=== PATIENT | female | born 1985 | race African-American/Black ===

== ENCOUNTER 2016-05-08 13:37 | Emergency (ER) | payer OTHER ==
[2016-05-08] MEDS ORDERED: ONDANSETRON ODT 4 MG TAB PO STA (14:11)
[2016-05-08] MEDS ORDERED: ACETAMINOPHEN TAB 500 MG TAB PO STA (14:11)
--- NOTE | 2016-05-08 14:22 | ED ---
Abdominal Pain HPI - General Chief Complaint: Abdominal Pain Stated Complaint: Vomiting Time Seen by Provider: 05/08/16 14:05 Source: patient, RN notes reviewed Mode of arrival: ambulatory Limitations: no limitations - History of Present Illness Initial Comments: 31-year-old female presents emergency Department with chief complaint of body aches, fever and upset stomach. Patient states that she believes that she ate bad food yesterday in which her son also did. She states her son had been vomiting this morning. She denies any vomiting states she's nauseated. Patient states that she has no specific abdominal pain. Patient states that she 's had a minimal cough but states that she has a headache and diffuse body aches. She has not taken any Tylenol or Motrin. Patient states that she does not know if she had a flu shot. Patient denies any chest pain or shortness of breath. Patient denies any neck stiffness - Related Data Previous Rx's Medication Instructions Recorded Ondansetron Odt [Zofran Odt] 4 mg PO Q8HR PRN #10 tab 05/08/16 Allergies Allergy/AdvReac Type Severity Reaction Status Date / Time Penicillins Allergy Severe Anaphylaxis Verified 05/08/16 14:05 Review of Systems ROS Statement: Those systems with pertinent positive or pertinent negative responses have been documented in the HPI. ROS Other: All systems not noted in ROS Statement are negative. Past Medical History Past Medical History: No Reported History Additional Past Medical History / Comment(s): increased blood pressure History of Any Multi-Drug Resistant Organisms: None Reported Past Surgical History: Orthopedic Surgery Additional Past Surgical History / Comment(s): left knee Past Anesthesia/Blood Transfusion Reactions: No Reported Reaction Past Psychological History: No Psychological Hx Reported Smoking Status: Never smoker Past Alcohol Use History: None Reported Past Drug Use History: None Reported - Past Family History Father History Unknown: Yes General Exam Limitations: no limitations General appearance: alert, in no apparent distress Head exam: Present: atraumatic, normocephalic, normal inspection Eye exam: Present: normal appearance, PERRL, EOMI. Absent: scleral icterus, conjunctival injection, periorbital swelling ENT exam: Present: normal exam, normal oropharynx, mucous membranes moist, TM's normal bilaterally, normal external ear exam Neck exam: Present: normal inspection, full ROM. Absent: tenderness, meningismus, lymphadenopathy Respiratory exam: Present: normal lung sounds bilaterally. Absent: respiratory distress, wheezes, rales, rhonchi, stridor Cardiovascular Exam: Present: normal rhythm, tachycardia, normal heart sounds. Absent: systolic murmur, diastolic murmur, rubs, gallop, clicks GI/Abdominal exam: Present: soft, normal bowel sounds. Absent: distended, tenderness, guarding, rebound, rigid Back exam: Absent: CVA tenderness (R), CVA tenderness (L) Skin exam: Present: warm, dry, intact, normal color. Absent: rash Course Vital Signs 05/08/16 13:54 Temperature 100.9 F H Pulse Rate 116 H Respiratory 18 Rate Blood Pressure 128/75 O2 Sat by Pulse 99 Oximetry Medical Decision Making - Medical Decision Making 31-year-old female presented emergency department with chief complaint of fever or bodyaches discharged on is not feeling well. She states she does feel better for Zofran. Patient will be discharged with Zofran reported negative. Return parameters were discussed. - Lab Data Lab Results 05/08/16 Range/Units 14:43 Influenza Type A RNA Not Detected (Not Detectd) Influenza Type B (PCR) Not Detected (Not Detectd) Disposition Clinical Impression: Viral infection Disposition: HOME SELF-CARE Condition: Stable Instructions: Viral Syndrome (ED) Additional Instructions: Please return to the Emergency Department if symptoms worsen or any other concerns. Prescriptions: Ondansetron Odt [Zofran Odt] 4 mg PO Q8HR PRN #10 tab PRN Reason: Nausea Time of Disposition: 15:32
[2016-05-08] MEDS ORDERED: IBUPROFEN 600 MG TAB PO STA (15:31)
[2016-05-08 15:49] VITALS: BP 153/77; PULSE 104; RESP 20; TEMP 100.3
== END 2016-05-08 15:49 | disposition home or self-care (01) ==
LOC: EC 13:37
DX: B34.9 Viral infection, unspecified (principal); Z88.0 Allergy status to penicillin
CPT/HCPCS: 87502; 99284

== ENCOUNTER 2016-07-30 00:02 | Emergency (ER) | payer OTHER ==
[2016-07-30 00:09] VITALS: BP 129/69; PULSE 88; RESP 20; TEMP 97.8
[2016-07-30] MEDS ORDERED: AZITHROMYCIN 250 MG TAB PO STA (00:54)
--- NOTE | 2016-07-30 00:55 | ED ---
ENT HPI - General Chief complaint: ENT Stated complaint: sore throat Time Seen by Provider: 07/30/16 00:51 Source: patient, RN notes reviewed Mode of arrival: ambulatory Limitations: no limitations - History of Present Illness Initial comments: 31-year-old female presents emergency Department chief complaint left ear pain, says her throat. Patient states it started last 48 hours. Progressively getting worse. Denies any fatigue. Denies any abdominal pain no history of mono. Patient states her swallow every time though she is having no difficulty swallowing. Denies any headache or dizziness. Denies any neck stiffness. Patient states she has not taking any recent Tylenol Motrin. - Related Data Previous Rx's Medication Instructions Recorded Azithromycin [Zithromax Z-pack] 0 mg PO DIRECTED #1 pack 07/30/16 Allergies Allergy/AdvReac Type Severity Reaction Status Date / Time Penicillins Allergy Severe Anaphylaxis Verified 07/30/16 00:09 Review of Systems ROS Statement: Those systems with pertinent positive or pertinent negative responses have been documented in the HPI. ROS Other: All systems not noted in ROS Statement are negative. Past Medical History Past Medical History: No Reported History Additional Past Medical History / Comment(s): increased blood pressure History of Any Multi-Drug Resistant Organisms: None Reported Past Surgical History: Orthopedic Surgery Additional Past Surgical History / Comment(s): left knee Past Anesthesia/Blood Transfusion Reactions: No Reported Reaction Past Psychological History: No Psychological Hx Reported Smoking Status: Never smoker Past Alcohol Use History: None Reported Past Drug Use History: None Reported - Past Family History Father History Unknown: Yes General Exam Limitations: no limitations General appearance: alert, in no apparent distress, obese Head exam: Present: atraumatic, normocephalic, normal inspection Eye exam: Present: normal appearance, PERRL, EOMI. Absent: scleral icterus, conjunctival injection, periorbital swelling ENT exam: Present: mucous membranes moist, normal external ear exam. Absent: normal oropharynx (Erythematous), TM's normal bilaterally (Left TM erythematous) Neck exam: Present: normal inspection, full ROM. Absent: tenderness, meningismus, lymphadenopathy Respiratory exam: Present: normal lung sounds bilaterally. Absent: respiratory distress, wheezes, rales, rhonchi, stridor Cardiovascular Exam: Present: regular rate, normal rhythm, normal heart sounds. Absent: systolic murmur, diastolic murmur, rubs, gallop, clicks Course Vital Signs 07/30/16 00:07 Temperature 97.8 F Pulse Rate 88 Respiratory 20 Rate Blood Pressure 129/69 O2 Sat by Pulse 99 Oximetry Disposition Clinical Impression: Otitis media, Acute pharyngitis Disposition: HOME SELF-CARE Condition: Stable Instructions: Earache (ED) Additional Instructions: Please return to the Emergency Department if symptoms worsen or any other concerns. Prescriptions: Azithromycin [Zithromax Z-pack] 0 mg PO DIRECTED #1 pack Referrals: None,Stated [Primary Care Provider] - 1-2 days Time of Disposition: 00:55
== END 2016-07-30 01:11 | disposition home or self-care (01) ==
LOC: EC 00:02
DX: J02.9 Acute pharyngitis, unspecified (principal); H66.92 Otitis media, unspecified, left ear; Z88.0 Allergy status to penicillin
CPT/HCPCS: 99282

== ENCOUNTER 2016-08-09 15:53 | Emergency (ER) | payer OTHER ==
[2016-08-09 16:00] VITALS: BP 141/82; PULSE 94; RESP 18; TEMP 98.5
--- NOTE | 2016-08-09 16:44 | ED ---
General Adult HPI - General Chief complaint: Skin/Abscess/Foreign Body Stated complaint: abscess Source: patient, family, RN notes reviewed Mode of arrival: ambulatory Limitations: no limitations - History of Present Illness Initial comments: Chief complaint and history of present illness a 31-year-old female here with family. The patient was recently treated for an ear infection with a Z-Alexander. The patient reports afterward she developed very large recurrent thyroglossal duct cyst. She reports she's had it since she was very young. Its been drained in the doctor's office on several occasions. She reports is significantly smaller now than it was earlier. She also reports that in the past she's has made a drain by putting a pin in it. Strongly encouraged not to do that. Patient denies fever or difficulty swallowing. - Related Data Previous Rx's Medication Instructions Recorded Cephalexin [Keflex] 500 mg PO Q6HR #40 cap 08/09/16 Allergies Allergy/AdvReac Type Severity Reaction Status Date / Time Penicillins Allergy Severe Anaphylaxis Verified 08/09/16 16:10 Review of Systems ROS Statement: Those systems with pertinent positive or pertinent negative responses have been documented in the HPI. Review of systems no other complaints today other than what she considers an ugly lump on the anterior neck. . Past medical problems thyroglossal duct cyst. She's also had orthopedic surgery on her knee. Family history not respiratory she has ALLERGIES to penicillins. ROS Other: All systems not noted in ROS Statement are negative. Past Medical History Past Medical History: No Reported History Additional Past Medical History / Comment(s): increased blood pressure History of Any Multi-Drug Resistant Organisms: None Reported Past Surgical History: Orthopedic Surgery Additional Past Surgical History / Comment(s): left knee Past Anesthesia/Blood Transfusion Reactions: No Reported Reaction Past Psychological History: No Psychological Hx Reported Smoking Status: Never smoker Past Alcohol Use History: None Reported Past Drug Use History: None Reported - Past Family History Father History Unknown: Yes General Exam - General Exam Comments Initial Comments: General: The patient is awake and alert, in no distress, and does not appear acutely ill. Here because of a marble sized thyroglossal duct cyst. Below the marble sized cyst is a larger harder area. About the size of a golf ball. Vital signs shows temperature 98.5 pulse 94 respiratory rate 18 pulse ox 90% room air blood pressure 141/82 Ears, nose, mouth and throat: There are moist mucous membranes and no oral lesions. No lymphadenopathy. The patient does have a thyroglossal duct cyst noted midline. Patient reports significantly smaller today than it had been in the past week. She states in the past when it was opened or drained spontaneously was a clear fluid and sometimes with pus. The patient is not having any difficulty breathing. No fever. No cough. Neck: As discussed above. Cardiovascular: No chest pain or palpitations Respiratory: No difficulty breathing. Limitations: no limitations Course Vital Signs 08/09/16 15:58 Temperature 98.5 F Pulse Rate 94 Respiratory 18 Rate Blood Pressure 141/82 O2 Sat by Pulse 98 Oximetry Medical Decision Making - Medical Decision Making Vital decision making. The patient will be referred onto on-call ENT Dr. Goldsmith. She was told to use warm compresses over the area and if it drained spontaneously apply a bandage topical antibiotic. She's otherwise been prescribed Keflex to be taken. Advised not to poke the skin to make it drain which she states she has done in the past. She reports spontaneously decreased in size without draining outwardly. Patient states she was reluctant to have the cyst removed or surgery on it in the past because she was told it might affect her vocal cords. I did discuss with her the possibility of thyroglossal duct cyst becoming malignant. Very important for her to follow up with ENT to make sure this has not happened. Disposition Clinical Impression: Persistent thyroglossal duct cyst Disposition: HOME SELF-CARE Condition: Fair Instructions: Abscess (ED) Additional Instructions: Take Keflex as directed until completed area and follow-up with on-call ENT for further evaluation and management of thyroglossal duct cyst. Do not place a pin or sharp object in the cyst to drain it. Use warm compresses and allow to drain spontaneously and covered with a bandage and topical antibiotic such as bacitracin. To follow-up with ENT because these have the potential become malignant. Need evaluation. Prescriptions: Cephalexin [Keflex] 500 mg PO Q6HR #40 cap Time of Disposition: 16:44
== END 2016-08-09 17:00 | disposition home or self-care (01) ==
LOC: EC 15:53
DX: Q89.2 Congenital malformations of other endocrine glands (principal); Z88.0 Allergy status to penicillin
CPT/HCPCS: 99282